=== PATIENT | male | born 1965 | race Caucasian/White ===

== ENCOUNTER 2016-03-10 12:18 | Emergency (ER) | payer OTHER ==
[~2016-03-10] VITALS: Wt 120.0 kg
[~2016-03-10 12:18] MED LIST: APIX2.5T PO; ASPI-664 PO; ATOR40TA68 PO; HYDR-762 PO; INSU100C SC; LANT3I SC; LOSA50TA6 PO; METF-406 PO; MULT-552 PO; TEMA30CA PO
[2016-03-10] MEDS ORDERED: morphine 4 MG/ML VIAL IV STA ×2 (12:37→16:36)
[2016-03-10] MEDS: ASPIRIN 325 MG TAB PO STA ×2 (12:51→12:54)
[2016-03-10 13:01] LABS: BASOPHILS % 0.4 % (0.0-2.0); EOSINOPHILS # 0.1 10^3/ul (0.0-0.5); EOSINOPHILS % 2.2 % (0.0-7.0); HEMATOCRIT 37.3 % (42.0-52.0); HEMOGLOBIN 12.8 g/dl (14.0-18.0); LYMPHOCYTES # 1.3 10^3/ul (0.8-2.9); LYMPHOCYTES % 23.2 % (15.0-51.0); MEAN CORPUSCULAR HEMOGLOBIN 29.2 pg (29.0-33.0); MEAN CORPUSCULAR HGB CONC 34.3 g/dl (32.0-37.0); MEAN CORPUSCULAR VOLUME 85.2 fl (82.0-101.0); MEAN PLATELET VOLUME 8.1 fl (7.4-10.4); MONOCYTE # 0.3 10^3/ul (0.3-0.9); MONOCYTES % 5.3 % (0.0-11.0); NEUTROPHILS % 68.9 % (39.0-77.0); PLATELET COUNT 176 10^3/UL (140-440); RED BLOOD COUNT 4.38 10^6/ul (4.70-6.10); RED CELL DISTRIBUTION WIDTH 14.5 % (11.5-14.5); UNCORRECTED WBC 5.8 10^3/ul (4.8-10.8); WHITE BLOOD COUNT 5.8 10^3/ul (4.8-10.8)
[2016-03-10 13:04] LABS: CONDITION 1; INR 0.95; PARTIAL THROMBOPLASTIN TIME 26.1 Sec (25.0-35.0); PROTIME 12.7 Sec (12.2-14.2)
[2016-03-10 13:09] LABS: CHLORIDE 103 mmol/L (97-110); POTASSIUM 4.9 mmol/L (3.5-5.1); SODIUM 141 mmol/L (135-144)
[2016-03-10 13:12] LABS: ANION GAP 15 (8-16); BLOOD UREA NITROGEN 22 mg/dl (7-20); CALCIUM 9.5 mg/dl (8.4-10.2); CARBON DIOXIDE 28 mmol/L (21-31); CREATININE 0.84 mg/dl (0.61-1.24); GLUCOSE 304 mg/dl (70-220)
[2016-03-10] MEDS ORDERED: HYD25 PO (13:16)
[2016-03-10] MEDS ORDERED: TRAZ50TA18 PO (13:17)
[2016-03-10] MEDS ORDERED: IODIXANOL LOCM 50 ML BTL ONE (13:18)
[2016-03-10] MEDS ORDERED: SOD CHLORIDE 0.9% 100 ML ONE (13:18)
[2016-03-10] MEDS ORDERED: IODIXANOL LOCM 100 ML BTL ONE (13:18)
[2016-03-10 13:24] LABS: TROPONIN-I < 0.012 ng/ml (0.00-0.12)
[2016-03-10 13:25] LABS: B-TYPE NATRIURETIC PEPTIDE 75 PG/ML (0-125)
--- NOTE | 2016-03-10 14:14 | RADRPT ---
PROCEDURE: CTA Chest and pulmonary angiogram. CLINICAL INDICATION: Chest pain and shortness of breath. Left lower extremity swelling. TECHNIQUE: CT scan of the chest and CT pulmonary angiogram was performed on a multidetector high-r Digabitolution CT scanner. High-resolution thin slice coronal and sagittal imaging was obtained from the axial source images. 3-D volumetric rendered post processing was performed as well. The patient w as examined following the uncomplicated intravenous administration of 120 cc of Visipaque 320. The i mages were reviewed on a PACS workstation. The total exam CTDI equals 84.50, and 18.81 and the total exam DLP equals 703.25 mGy-cm. One or more of the following dose reduction techniques were used: Automated exposure control. Adjustment of the mA and/or kV according to patient size. Use of iterative reconstruction technique. COMPARISON: CTA chest 02/12/2015 FINDINGS: CT chest: There are low lung volumes with compressive changes and bibasilar atelectasis. Patchy ground-glass opacities in bilateral lungs which could be related to hypoventilation. No focal opacification, effu winnie, pneumothorax, edema, or nodules are seen. The central tracheobronchial tree is clear. The mediastinum is unremarkable without evidence for mass or lymphadenopathy. The vascular structur es of the mediastinum are normal in course and caliber. The heart size is prominent without pericar dial thickening or effusion. The axillary, subpectoral, and supraclavicular regions are unremarkabl e. Imaging obtained through the upper abdomen is equally unremarkable. A few prominent venous collatera ls are seen in the anterior chest wall and the upper abdominal wall. The adrenal glands are symmetr ically normal. The surrounding chest wall is unremarkable. The osseous structures are remarkable f or degenerative spondylosis of the spine. CT pulmonary angiogram: No thrombus, clot, filling defect, or pulmonary web is identified. The pulmonary arteries are humaira l in caliber and morphology. No filling defect is present to suggest pulmonary embolism. There is no evidence for pulmonary arterial hypertension. IMPRESSION: 1. No evidence for pulmonary embolism. 2. Low lung volumes with bibasilar atelectasis. Patchy ground-glass opacities are evident in the lo wer lobes likely related to hypoventilation. 3. No acute infiltrates. RPTAT: BB .Hany Sandoval MD, MD Date Time Electronically viewed and signed by .Hany Sandoval MD, MD on 03/10/2016 14:13 .O/
[2016-03-10] MEDS ORDERED: NITROGLYCERIN (SL) 0.4 MG TAB SL ONE (14:30)
[2016-03-10] MEDS ORDERED: SOD CHLORIDE 0.9% 1,000 ML IV ONE (14:30)
[2016-03-10] MEDS ORDERED: LIDOCAINE/MYLANTA 40 ML BTL PO ONE (14:30)
--- NOTE | 2016-03-10 16:08 | RADRPT ---
PROCEDURE: US left lower extremity veins. CLINICAL INDICATION: Left leg pain and swelling. TECHNIQUE: Multiple longitudinal and transverse images of the left lower extremity veins were obta ined with díaz scale and color Doppler imaging. The common femoral vein, femoral vein, and popliteal vein were evaluated. 2D grayscale measurements with compression sonography, pulsed Doppler, color D oppler, and pulsed Doppler with augmentation. COMPARISON: Bilateral lower extremity venous Doppler dated 02/12/2015 which demonstrated partial t hrombosis of the left mid and lower femoral vein and popliteal vein, likely chronic. FINDINGS: The left common femoral and femoral veins are normally compressible throughout. Color flow demonstr ates normal filling of the vessels. Normal waveforms are visualized and there is normal response to augmentation. There is partial flow and partial compressibility of the left popliteal vein. The ve in contains echogenic thrombus and is not dilated. IMPRESSION: 1. Normal left common femoral vein and femoral vein. 2. Partial thrombus in the left popliteal vein consistent with chronic thrombus, improved when comp ared with 02/12/2015. RPTAT: QQ .Alex Duong MD, MD Date Time Electronically viewed and signed by .Alex Duong MD, MD on 03/10/2016 16:08 .R/
[2016-03-10] MEDS ORDERED: NAPR-688 PO (16:40)
[2016-03-10] MEDS ORDERED: HYDR-906 PO (16:40)
[2016-03-10 17:18] VITALS: BP 136/76; PULSE 77; RESP 19; TEMP 98.2
--- NOTE | 2016-03-10 17:24 | ERD ---
ER Documentation Chief Complaint Date/Time DATE: 03/10/16 TIME: 17:13 Chief Complaint CHEST PAIN since this am HPI A 50-year-old male presents the ER for chest pain that began earlier this morning. He is also had left leg pain for this time. Chest pain is in his left anterior axillary area and does not radiate. Nothing makes it better or worse. He has no shortness of breath nausea or vomiting with the pain. He does have a history of 2 pulmonary embolisms and is currently taking Eliquis. He has bilateral lower extremity swelling but only has pain on the left side. Swelling is chronic and he stands up all night at his job and states that it got worse overnight. He has had advanced cardiac testing such as echocardiogram and stress test within the last year states that they were normal. He states he has an ejection fraction of 69%. ROS All systems reviewed and are negative except as per history of present illness. Medications Home Meds Active Scripts Naproxen* (Naproxen*) 500 Mg Tablet, 500 MG PO BID Y for PAIN, #20 TAB Prov:COMFORT FABIAN DO 03/10/16 Hydrocodone/Acetaminophen ([place] 5-325 Tablet) 1 Each Tablet, 1 EACH PO Q6, #7 TAB Prov:COMFORT FABIAN DO 03/10/16 Reported Medications Trazodone Hcl* (Trazodone Hcl*) 50 Mg Tablet, 50 MG PO QHS, #30 TAB 03/10/16 Hydrochlorothiazide* (Hydrochlorothiazide*) 25 Mg Tab, 25 MG PO DAILY, #30 TAB 03/10/16 Aspirin (Low Dose Aspirin) 81 Mg Tablet.dr, 81 MG PO DAILY 02/12/15 Insulin Lispro (Humalog) 100 U/Ml Cartridge, 5 UNITS SC WITH MEALS, EA 02/12/15 Multivitamins* (Once Daily*) 1 Tab Tablet, 1 TAB PO DAILY, TAB 11/09/14 Losartan Potassium* (Losartan Potassium*) 50 Mg Tablet, 50 MG PO DAILY, TAB 11/09/14 Atorvastatin* (Atorvastatin*) 40 Mg Tablet, 40 MG PO HS, TAB 03/17/14 Insulin Glargine* (Lantus*) 100 Unit/Ml Soln, 28 UNIT SC QHS, EA 03/17/14 Metformin Hcl* (Metformin Hcl* ER) 1,000 Mg Tab.er.24, 1000 MG PO BID 10/27/12 Discontinued Reported Medications Temazepam* (Temazepam*) 30 Mg Capsule, 30 MG PO HS Y for INSOMNIA, CAP 01/04/14 Discontinued Scripts Hydrocodone Bit-Acetaminophen* ([place]*) 10-325 Mg Tablet, 1 TAB PO Q6 Y for PAIN , #20 TAB Prov:SHANT LOPEZ 02/12/15 Apixaban* (Eliquis*) 2.5 Mg Tablet, 5 MG PO BID, #60 TAB Prov:KORIVOLODYMYR 11/09/14 Allergies Allergies: Coded Allergies: vancomycin (Unverified Allergy, Unknown, "CODES", 03/10/16) RE-ENTERED UNCODED ALLERGY CODED PMhx/Soc History of Surgery: Yes (IVC filter R LE only per pt report; knee surgery) Anesthesia Reaction: No Hx Neurological Disorder: No Hx Respiratory Disorders: Yes Hx Cardiac Disorders: Yes Hx Psychiatric Problems: No Hx Miscellaneous Medical Probl: Yes (TIA, chronic DVTs) Hx Alcohol Use: No Hx Substance Use: No Hx Tobacco Use: No Smoking Status: Unknown if ever smoked Physical Exam Vitals Vital Signs Date Time Temp Pulse Resp B/P Pulse Ox O2 Delivery O2 Flow Rate FiO2 03/10/16 16:00 76 18 140/81 98 Nasal Cannula 03/10/16 13:50 70 19 121/71 100 Room Air 03/10/16 12:45 Nasal Cannula 2 03/10/16 12:24 98.1 18 172/76 99 Physical Exam Const: [] No distress Head: Atraumatic Eyes: Normal Conjunctiva ENT: Normal External Ears, Nose and Mouth. Neck: Full range of motion..~ No meningismus. Resp: Clear to auscultation bilaterally Cardio: Regular rate and rhythm, no murmurs Abd: Soft, non tender, non distended. Normal bowel sounds Skin: No petechiae or rashes Back: No midline or flank tenderness Ext: No cyanosis, trace pitting edema to bilateral lower extremities, negative Homans sign Neur: Awake and alert oriented 3, no focal deficits Psych: Normal Mood and Affect Result Diagram: 03/10/16 1246 03/10/16 1246 Results 24 hrs Laboratory Tests Test 03/10/16 12:46 Activated Partial Thromboplast Time 26.1Sec Anion Gap 15 B-Type Natriuretic Peptide 75PG/ML Basophils # 0.010^3/ul Basophils % 0.4% Blood Urea Nitrogen 22mg/dl Calcium Level 9.5mg/dl Carbon Dioxide Level 28mmol/L Chloride Level 103mmol/L Creatinine 0.84mg/dl Eosinophils # 0.110^3/ul Eosinophils % 2.2% Glucose Level 304mg/dl Hematocrit 37.3% Hemoglobin 12.8g/dl INR International Normalized Ratio 0.95 Lymphocytes # 1.310^3/ul Lymphocytes % 23.2% Mean Corpuscular Hemoglobin 29.2pg Mean Corpuscular Hemoglobin Concent 34.3g/dl Mean Corpuscular Volume 85.2fl Mean Platelet Volume 8.1fl Monocytes # 0.310^3/ul Monocytes % 5.3% Neutrophils # 4.010^3/ul Neutrophils % 68.9% Nucleated Red Blood Cells # 0.010^3/ul Nucleated Red Blood Cells % 0.0/100WBC Platelet Count 40189^3/UL Potassium Level 4.9mmol/L Prothrombin Time 12.7Sec Prothrombin Time Ratio 1.0 Red Blood Count 4.3810^6/ul Red Cell Distribution Width 14.5% Sodium Level 141mmol/L Troponin I < 0.012ng/ml White Blood Count 5.810^3/ul Current Medications Medications (Trade) Dose Ordered Sig/Paul Route PRN Reason Start Time Stop Time Status Last Admin Dose Admin Aspirin (Aspirin) 325 mg ONCE STAT PO 03/10/16 12:37 03/10/16 12:39 DC Morphine Sulfate (morphine) 4 mg ONCE STAT IV 03/10/16 12:37 03/10/16 12:39 DC 03/10/16 12:51 IV Flush 10 ml 10 ml STK-MED ONCE .ROUTE 03/10/16 13:18 03/10/16 13:19 DC 03/10/16 13:53 Sodium Chloride (NS) 100 ml @ ud STK-MED ONCE .ROUTE 03/10/16 13:18 03/10/16 13:19 DC 03/10/16 13:53 Iodixanol (Visipaque Locm) 100 ml STK-MED ONCE .ROUTE 03/10/16 13:18 03/10/16 13:19 DC 03/10/16 13:54 Iodixanol (Visipaque Locm) 50 ml STK-MED ONCE .ROUTE 03/10/16 13:18 03/10/16 13:19 DC 03/10/16 13:54 Nitroglycerin 1 tab 1 tab ONCE ONCE SL 03/10/16 14:30 03/10/16 14:31 DC 03/10/16 14:08 Sodium Chloride (NS) 1,000 ml @ 1,000 mls/hr Q1H ONCE IV 03/10/16 14:30 03/10/16 15:29 DC 03/10/16 14:14 Miscellaneous Medication (Gi Cocktail (2)) 40 ml ONCE ONCE PO 03/10/16 14:30 03/10/16 14:31 DC 03/10/16 14:14 Morphine Sulfate (morphine) 4 mg ONCE STAT IV 03/10/16 16:36 03/10/16 16:37 DC 03/10/16 16:45 Procedures/MDM Reproducible chest pain with bilateral lower extremity edema. Chronic DVT. Hyperglycemia. Patient has no signs of acute ischemia with a nonischemic EKG and negative troponin after chest pain that began this morning. Does have elevated blood sugar and states that he did not take his medications because he is coming to the hospital. He had taken 325 mg aspirin. He was given 4 mg of morphine. He still had some pain was given a GI cocktail which reduced the pain even further. States he has excellent primary care follow-up and is relieved he did not have a blood clot in his lungs. Does have a chronic DVT in his popliteal area and is already on Eliquis for this. I have low suspicion for acute coronary syndrome but instructed the patient to return if he has any return of symptoms or concerning symptoms whatsoever. Of discharge with primary care follow-up in the next couple of days. I am also given him naproxen and [place] for what may be musculoskeletal chest pain. He was given a liter of normal saline for his elevated blood sugar. EKG interpretation: Normal sinus rhythm rate of 68, left axis deviation, first- degree AV block, no ST or T-wave changes concerning for acute ischemia monitoring specialist interpretation: Normal sinus rhythm without arrhythmia CTA chest interpretation: I see no acute process, no PE no dissection, no infiltrates no pneumothorax, no pulmonary edema no fractures Departure Diagnosis: Primary Impression: Chest pain Additional Impressions: Bilateral lower extremity edema Chronic deep vein thrombosis (DVT) of left lower extremity Hyperglycemia due to type 2 diabetes mellitus Condition: Stable Patient Instructions: Chest Pain, Uncertain Cause, Peripheral Edema, Bilateral Additional Instructions: Call your primary care doctor TOMORROW for an appointment during the next 1-2 days.See the doctor sooner or return here if your condition worsens before your appointment time. COMFORT FABIAN DO Mar 10, 2016 17:23
== END 2016-03-10 17:19 | disposition home or self-care (01) ==
LOC: E/R 12:18
DX: R07.9 Chest pain, unspecified (principal); R22.43 Localized swelling, mass and lump, lower limb, bilateral; I82.592 Chronic embolism and thrombosis of other specified deep vein of left lower extremity; E11.65 Type 2 diabetes mellitus with hyperglycemia; I10 Essential (primary) hypertension; Z79.4 Long term (current) use of insulin; Z79.84 Long term (current) use of oral hypoglycemic drugs; Z79.82 Long term (current) use of aspirin
CPT/HCPCS: 36415; 71275; 80048; 83880; 84484; 85025; 85610; 85730; 93971; 96374; 96376; J2270; J7030; Q9967; Z7502; Z7610; 93005

== ENCOUNTER 2017-01-19 20:04 | Emergency (ER) | payer OTHER ==
[~2017-01-19] VITALS: Ht 182.9 cm; Wt 119.7 kg
[~2017-01-19 20:04] MED LIST changes: -APIX2.5T PO; -HYDR-762 PO; +HYDR-906 PO; +HYDR25TA6 PO; +NAPR-688 PO; -TEMA30CA PO; +TRAZ50TA18 PO
[2017-01-19 20:11] VITALS: Ht 182.9 cm; Wt 119.7 kg
[2017-01-19 21:44] VITALS: TEMP 97.7
--- NOTE | 2017-01-19 21:58 | ERD ---
ER Documentation Chief Complaint Chief Complaint chest pain with sob since 20 minutes ago HPI Patient is a 51-year-old male with history of pulmonary emboli and DVTs who presents to the ER with gradual onset, constant, progressive bilateral leg swelling and pain since this morning. He denies redness, fever. He reports a sharp pain in his left side of the chest that has been intermittent for the last 3-4 hours. He reports mild shortness of breath. He has questionable history of factor V Leiden. He is on Eliquis. He has had venous thromboembolism in the setting of being on anticoagulants. His last DVT was diagnosed 10 months ago and his last pulmonary embolism was diagnosed 2 years ago. 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 ROS All systems reviewed and are negative except as per history of present illness. Medications Home Meds Active Scripts Hydrocodone/Acetaminophen ([place] 5-325 Tablet) 1 Each Tablet, 1 TAB PO Q6H Y for PAIN, #14 TAB Prov:AB GILBERT MD 01/19/17 Reported Medications Sitagliptin* (Januvia*) 100 Mg Tablet, 100 MG PO DAILY, #30 TAB 01/19/17 Levothyroxine Sodium* (Levothyroxine Sodium*) 175 Mcg Tablet, 175 MCG PO BEFORE BREAKFAST, #30 TAB 01/19/17 Temazepam* (Temazepam*) 30 Mg Capsule, 30 MG PO HS Y for INSOMNIA, CAP 01/19/17 Insulin Glargine,Hum.rec.anlog (Basaglar Kwikpen U-100) 100 Unit/1 Ml Insuln.pen , 28 UNIT SC QHS 01/19/17 Apixaban* (Eliquis*) 5 Mg Tablet, 5 MG PO BID, TAB 01/19/17 Insulin Lispro (Humalog) 100 U/Ml Cartridge, 5 UNITS SC WITH MEALS, EA 02/12/15 Losartan Potassium* (Losartan Potassium*) 50 Mg Tablet, 50 MG PO DAILY, TAB 11/09/14 Atorvastatin* (Atorvastatin*) 40 Mg Tablet, 40 MG PO HS, TAB 03/17/14 Metformin Hcl* (Metformin Hcl* ER) 1,000 Mg Tab.er.24, 1000 MG PO BID 10/27/12 Discontinued Reported Medications Trazodone Hcl* (Trazodone Hcl*) 50 Mg Tablet, 50 MG PO QHS, #30 TAB 03/10/16 Hydrochlorothiazide* (Hydrochlorothiazide*) 25 Mg Tab, 25 MG PO DAILY, #30 TAB 03/10/16 Aspirin (Low Dose Aspirin) 81 Mg Tablet.dr, 81 MG PO DAILY 02/12/15 Multivitamins* (Once Daily*) 1 Tab Tablet, 1 TAB PO DAILY, TAB 11/09/14 Insulin Glargine* (Lantus*) 100 Unit/Ml Soln, 28 UNIT SC QHS, EA 03/17/14 Discontinued Scripts Naproxen* (Naproxen*) 500 Mg Tablet, 500 MG PO BID Y for PAIN, #20 TAB Prov:COMFORT FABIAN DO 03/10/16 Hydrocodone/Acetaminophen ([place] 5-325 Tablet) 1 Each Tablet, 1 EACH PO Q6, #7 TAB Prov:COMFORT FABIAN DO 03/10/16 Allergies Allergies: Coded Allergies: vancomycin (Unverified Allergy, Unknown, "CODES", 01/19/17) RE-ENTERED UNCODED ALLERGY CODED PMhx/Soc Past medical history: Diabetes mellitus, pulmonary embolism, DVT, Hypertension, TIA Past surgical history: Knee surgery, IVC filter Social history: Denies tobacco, drinks occasional alcohol History of Surgery: Yes (IVC filter R LE only per pt report; knee surgery) Anesthesia Reaction: No Hx Neurological Disorder: No Hx Respiratory Disorders: Yes Hx Cardiac Disorders: Yes (HTN) Hx Psychiatric Problems: No Hx Miscellaneous Medical Probl: Yes (TIA, chronic DVTs DM) Hx Alcohol Use: No Hx Substance Use: No Hx Tobacco Use: No FmHx Noncontributory Physical Exam Vitals Vital Signs Date Time Temp Pulse Resp B/P Pulse Ox O2 Delivery O2 Flow Rate FiO2 01/19/17 23:46 55 20 161/81 99 Room Air 01/19/17 20:11 97.7 73 20 174/90 99 Physical Exam Const: Alert, no acute distress Head: Atraumatic Eyes: Normal Conjunctiva, No pallor, no icterus ENT: Normal External Ears, Nose and Mouth. Mucous membranes moist Neck: Full range of motion. No JVD Resp: Clear to auscultation bilaterally, No wheezes, no rales Cardio: Regular rate and rhythm, no murmurs Abd: Soft, non tender, non distended. Skin: No petechiae or rashes Ext: No cyanosis, 2+ nonpitting edema to bilateral lower extremities. Positive calf tenderness, no erythema or warmth Neur: Awake and alert, Strength and sensation full in 4 extremities, cranial nerves II through XII intact bilaterally Psych: Normal Mood and Affect Result Diagram: 01/19/17215601/19/172156 Results 24 hrs Laboratory Tests Test 01/19/17 21:57 White Blood Count 6.910^3/ul Red Blood Count 4.6110^6/ul Hemoglobin 13.8g/dl Hematocrit 39.9% Mean Corpuscular Volume 86.6fl Mean Corpuscular Hemoglobin 29.9pg Mean Corpuscular Hemoglobin Concent 34.6g/dl Red Cell Distribution Width 14.2% Platelet Count 91019^3/UL Mean Platelet Volume 9.6fl Neutrophils % 64.2% Lymphocytes % 26.4% Monocytes % 6.7% Eosinophils % 1.7% Basophils % 0.6% Nucleated Red Blood Cells % 0.0/100WBC Neutrophils # 4.410^3/ul Lymphocytes # 1.810^3/ul Monocytes # 0.510^3/ul Eosinophils # 0.110^3/ul Basophils # 0.010^3/ul Nucleated Red Blood Cells # 0.010^3/ul Sodium Level 138mmol/L Potassium Level 3.9mmol/L Chloride Level 100mmol/L Carbon Dioxide Level 28mmol/L Anion Gap 14 Blood Urea Nitrogen 26mg/dl Creatinine 1.02mg/dl Glucose Level 287mg/dl Calcium Level 10.1mg/dl Troponin I < 0.012ng/ml B-Type Natriuretic Peptide 35PG/ML Current Medications Medications (Trade) Dose Ordered Sig/Paul Route PRN Reason Start Time Stop Time Status Last Admin Dose Admin Acetaminophen/ Hydrocodone Bitart ([place] (5/325)) 1 tab ONCE ONCE PO 01/19/17 23:00 01/19/17 23:01 DC 01/19/17 22:56 IV Flush 10 ml 10 ml STK-MED ONCE .ROUTE 01/19/17 23:11 01/19/17 23:12 DC 01/19/17 23:25 Sodium Chloride 100 ml @ ud STK-MED ONCE .ROUTE 01/19/17 23:11 01/19/17 23:12 DC 01/19/17 23:25 Iohexol (Omnipaque) 100 ml @ ud STK-MED ONCE .ROUTE 01/19/17 23:11 01/19/17 23:12 DC 01/19/17 23:25 Procedures/MDM EKG read by me: Time 2246, rate 56 Rhythm: Sinus bradycardia [place]: Normal Intervals: Prolonged LA interval ST-T waves: no ischemic changes Ectopy: No Q-waves: Inferior Q waves Impression: First-degree AV block, evidence of prior inferior CT, no ischemia MDM: Patient is a 51-year-old male who presents to the ER with primary complaint of bilateral lower extremity pain and swelling for 1 day. There is no evidence of infection on exam, but the patient has extensive history of recurrent DVTs. Ultrasound of the lower extremity shows chronic DVTs but no acute DVT. The patient is on Eliquis and compliant with medication. He also reported intermittent, sharp chest pain that was brief in duration. A CTPA was performed and is negative for pulmonary embolism. Given that the patient is currently anticoagulated and does not have evidence of acute DVT E, I believe that he can be safely discharged home. He did request a prescription for pain medication for his leg pain. I consulted [facility], and see that he has had a few prior narcotic prescriptions. I will provide him with a short course of [place] for severe pain, and advised him to follow-up closely with his PMD. There is no evidence of infection on exam. I do not believe that his chest pain is concerning for acute coronary syndrome or aortic dissection. He had a nonischemic EKG and a negative troponin. He was advised on return precautions and PMD follow-up. Departure Diagnosis: Primary Impression: Chest pain Chest pain type: unspecified Qualified Code: R07.9 - Chest pain, unspecified type Additional Impressions: Bilateral leg pain Leg edema Chronic deep vein thrombosis (DVT) DVT location: lower extremity Affected thrombotic vein of extremity: unspecified vein of extremity Laterality: bilateral Qualified Code: I82.503 - Chronic deep vein thrombosis (DVT) of both lower extremities, unspecified vein Condition: AB Chandler MD Jan 19, 2017 21:58
[2017-01-19 22:04] LABS: BASOPHILS % 0.6 % (0.0-2.0); EOSINOPHILS # 0.1 10^3/ul (0.0-0.5); EOSINOPHILS % 1.7 % (0.0-7.0); HEMATOCRIT 39.9 % (42.0-52.0); HEMOGLOBIN 13.8 g/dl (14.0-18.0); LYMPHOCYTES # 1.8 10^3/ul (0.8-2.9); LYMPHOCYTES % 26.4 % (15.0-51.0); MEAN CORPUSCULAR HEMOGLOBIN 29.9 pg (29.0-33.0); MEAN CORPUSCULAR HGB CONC 34.6 g/dl (32.0-37.0); MEAN CORPUSCULAR VOLUME 86.6 fl (82.0-101.0); MEAN PLATELET VOLUME 9.6 fl (7.4-10.4); MONOCYTE # 0.5 10^3/ul (0.3-0.9); MONOCYTES % 6.7 % (0.0-11.0); NEUTROPHIL # 4.4 10^3/ul (1.6-7.5); NEUTROPHILS % 64.2 % (39.0-77.0); PLATELET COUNT 158 10^3/UL (140-415); RED BLOOD COUNT 4.61 10^6/ul (4.70-6.10); RED CELL DISTRIBUTION WIDTH 14.2 % (11.5-14.5); WHITE BLOOD COUNT 6.9 10^3/ul (4.8-10.8)
[2017-01-19] MEDS ORDERED: APIX5TAB PO (22:31)
[2017-01-19] MEDS ORDERED: INSU100I33 SC (22:32)
[2017-01-19] MEDS ORDERED: LEVO175T6 PO (22:33)
[2017-01-19] MEDS ORDERED: TEMA30CA PO (22:33)
--- NOTE | 2017-01-19 22:33 | RADRPT ---
PROCEDURE: XR Chest. CLINICAL INDICATION: Chest pain TECHNIQUE: Single frontal view of the chest was obtained COMPARISON: CTA of the chest of 03/10/2016 FINDINGS: The heart and mediastinum are within normal limits. Hypoinflation lungs. There is minimal prominence of the lung interstitium likely minimal chronic norbert nges. ECG leads projected over the chest. Degenerative changes in thoracic spine. There is no pleural effusion or pneumothorax. IMPRESSION: Hypoinflation of the lungs. No definite acute abnormality seen. RPTAT: HJES .Ketan Ivory MD, MD Date Time Electronically viewed and signed by .Ketan Ivory MD, on 01/19/2017 22:33 .S/
[2017-01-19 22:34] LABS: ANION GAP 14 (8-16); BLOOD UREA NITROGEN 26 mg/dl (7-20); CALCIUM 10.1 mg/dl (8.4-10.2); CARBON DIOXIDE 28 mmol/L (21-31); CHLORIDE 100 mmol/L (97-110); CREATININE 1.02 mg/dl (0.61-1.24); GLUCOSE 287 mg/dl (70-220); POTASSIUM 3.9 mmol/L (3.5-5.1); SODIUM 138 mmol/L (135-144)
[2017-01-19] MEDS ORDERED: SITA100T8 PO (22:34)
[2017-01-19 22:46] LABS: B-TYPE NATRIURETIC PEPTIDE 35 PG/ML (0-125); TROPONIN-I < 0.012 ng/ml (0.00-0.12)
--- NOTE | 2017-01-19 22:47 | RADRPT ---
PROCEDURE: Ultrasound examination of bilateral lower extremities veins with Doppler. CLINICAL INDICATION: Leg pain and swelling, shortness of breath. TECHNIQUE: Multiple sonographic images of bilateral lower extremity venous systems were performed with díaz scale and color Doppler. COMPARISON: 03/10/2016. FINDINGS: There is a chronic partial deep venous thrombosis within the right proximal to distal superficial fe moral vein extending into the calf veins. There is a chronic partial deep venous thrombosis within t he left mid superficial femoral vein extending to the popliteal vein. There is post thrombolytic sca rring with deep venous reflux. There is a stent seen extending within the right common femoral vein into the popliteal vein. Bilateral common femoral, superficial femoral and popliteal veins demonstra te normal color flow, waveforms and partial compression. There is no evidence of acute deep venous thrombosis. IMPRESSION: Bilateral lower extremity chronic partial deep venous thromboses. There is no evidence of acute deep venous thrombosis. Right lower extremity stent extending within the right common femoral to popliteal vein. .Gigi Henriquez MD, MD Date Time Electronically viewed and signed by .Gigi Henriquez MD, on 01/19/2017 22:47 .T/
[2017-01-19] MEDS ORDERED: HYDROCODONE/APAP (5/325) TAB PO ONE (23:00)
[2017-01-19] MEDS ORDERED: SOD CHLORIDE 0.9% 100 ML ONE (23:11)
[2017-01-19] MEDS ORDERED: IOHEXOL 100 ML ONE (23:11)
--- NOTE | 2017-01-19 23:26 | RADRPT ---
PROCEDURE: CT chest with contrast/PE protocol CLINICAL INDICATION: Chest pain and shortness of breath. Clinical concern for pulmonary embolism. TECHNIQUE: The study was performed from the thoracic inlet to the upper abdomen with the use of 10 0 cc of Omnipaque 350 intravenous contrast material per PE protocol. Coronal/sagittal reformatted im ages and coronal MIP images were generated. 3-D post processing was not performed The images were re viewed on a PACS workstation. One or more of the following dose reduction techniques were used: Auto mated exposure control, adjustment of the mA and/or kV according to patient size, use of iterative r econstruction technique. CTDIvol = 74.62 mGy and DLP= 698.99 mGycm. COMPARISON: Chest x-ray 09/[address] angiogram 03/10/2016 FINDINGS: Lungs, airway and pleura: The trachea and bronchi are patent as well as normal in caliber. The leola gs are clear of infiltrates, masses or nodules. No emphysema is demonstrated The pleural spaces are clear, without effusions. Mediastinum, alexander and cardiovascular: The heart is normal in size. There is no evidence for perica rdial effusion. The thoracic aorta is normal in caliber. There is no evidence of dissection. Mild c alcification within the aortic arch is present . There are no filling defects within the pulmonary a rteries to suggest emboli. There is no evidence for hilar mass and no mediastinal adenopathy is pres ent. The esophagus is normal in caliber. Osseous structures and musculoskeletal findings: There is preservation of bone architecture and min eralization with no evidence for fracture, lytic or blastic lesion. Mild thoracic spondylosis is pre sent No chest wall abnormalities are present. The axillary regions are unremarkable. Visualized upper abdomen: No abnormalities are identified. The adrenal glands are normal bilateral ly. RPTAT:HJJR IMPRESSION: 1. No evidence for pulmonary embolism or acute intrathoracic abnormality. 2. Minimal atherosclerotic calcification in the aortic arch. 3. Mild thoracic spondylosis. Physician Luanne Date Time Electronically viewed and signed by Physician Luanne on 01/19/2017 23:26 /
[2017-01-19] MEDS ORDERED: HYDR-906 PO (23:38)
[2017-01-19 23:46] VITALS: BP 161/81; PULSE 55; RESP 20
== END 2017-01-19 23:47 | disposition home or self-care (01) ==
LOC: E/R 20:04
DX: R07.9 Chest pain, unspecified (principal); I82.503 Chronic embolism and thrombosis of unspecified deep veins of lower extremity, bilateral; E11.9 Type 2 diabetes mellitus without complications; I10 Essential (primary) hypertension; Z79.4 Long term (current) use of insulin; Z79.82 Long term (current) use of aspirin; Z79.84 Long term (current) use of oral hypoglycemic drugs
CPT/HCPCS: 36415; 71010; 71275; 80048; 83880; 84484; 85025; 93970; Q9967; Z7502; Z7610; 93005

== ENCOUNTER 2017-12-08 03:37 | Emergency (ER) | END 2017-12-08 10:43 | disposition home or self-care (01) ==